=== PATIENT | male | born 1955 | race African-American/Black ===

== ENCOUNTER 2019-03-24 14:11 | Inpatient (IN) | payer SELFPAY ==
[2019-03-24] MEDS ORDERED: Acetaminophen 325 MG TAB PO PRN (15:15)
[2019-03-24] MEDS ORDERED: Senokot S 8.6-50 MG TAB PO PRN (15:15)
[2019-03-24] MEDS ORDERED: Bisacodyl 5 MG TAB PO PRN (15:15)
[2019-03-24 17:46] VITALS: BMI 19.5
[2019-03-24] MEDS: Sodium Chloride 0.9% 1,000 ML IV SCH (18:36)
--- NOTE | 2019-03-24 21:42 | HP ---
CHIEF COMPLAINT: Dizziness. HISTORY OF PRESENT ILLNESS: The patient is a 63-year-old male with no significant past medical history, who presents to the hospital with complaints of worsening dizziness for the past 1 week. The patient stated that he has been having also some blurry vision, and also generalized weakness. The patient's noticed a 20-pound weight loss in the last year. He states he is hungry and he wants to eat. The patient states that he has been feeling dizzy and lightheaded for the past week; however, this has worsened today. 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 The patient has never had a colonoscopy. He also has been complaining of black tarry stool for the past 2 months. He does have hemorrhoids; however, does not have active bleeding when he wipes after having a bowel movement. He also states that he takes about 4 to 5 tablets of ibuprofen for a week because of a toothache. The patient had a similar episode like this back in 2004 and he was admitted to [facility]. He was supposed to follow up with them; however, never did. PAST MEDICAL HISTORY: He denies. PAST SURGICAL HISTORY: He had a urethral tear, which was repaired. SOCIAL HISTORY: He smokes half a pack a day for about 20 years. Denies any alcohol use or drug use. He is a full code. Lives with the family. FAMILY HISTORY: Mother has diabetes. REVIEW OF SYSTEMS: All negative except for the ones mentioned above in the HPI. PHYSICAL EXAMINATION: VITAL SIGNS: Temperature of 98.4, respiratory rate 18, saturation 98% on room air, heart rate 77, blood pressure 120/60. GENERAL: He is awake, alert, and oriented x3. Does not appear in distress. HEENT: Conjunctivae are pale. Pupils are equal and reactive to light. CV: S1 and S2 present. No murmurs, rubs, or gallops. LUNGS: Clear to auscultation. No rhonchi or wheezes noted. ABDOMEN: Soft and nontender. Bowel sounds are present x2. EXTREMITIES: No edema. Pedal pulses are present x2. NEUROVASCULAR: No focal deficits noted. SKIN: No cuts, lesions, or bruises noted. LABORATORY RESULTS: As of the following; WBCs of 2.3, hemoglobin of 4.5, hematocrit of 12.4, platelets of 46, his MCV is 115. He is hypochromic. Chemistry; sodium of 141, potassium of 4.0, BUN is 16, creatinine 0.87, total bilirubin of 2.4, AST of 48. His lactic acid was 2.1. Urine appears dark. Has a small amount of bilirubin. Leukocyte esterase is trace. ASSESSMENT AND PLAN: The patient is a 63-year-old male, who comes to the hospital with generalized complaints of weakness. 1. Dizziness. This is most likely secondary to anemia, appears to be chronic in nature; however, now he is becoming more symptomatic. The patient's MCV is 114; however, I will go ahead and check iron studies. I will check a vitamin B12. I will check a folic. I will also check a ferritin level. I have discussed with the patient. He has agreed for me checking an HIV. I will get records from [facility]. I will also consult Hematology since his guaiac was negative. If there has not been a chest x-ray, I will go ahead and order a chest x-ray to rule out any other malignancies. He will also need possibly an upper and lower colonoscope to further evaluate his anemia. I will also consider doing an SPEP and a UPEP for further evaluation and I will go ahead and transfuse him a total of 2 units and check his H and H. 2. Pancytopenia. Again, this is most likely secondary to either bone marrow suppression versus production issue versus viral versus malignancy. Again, I will consult Hematology for further evaluation with this and in the meantime, I will check iron studies and may also have to consider consulting GI for possible colonoscopy given his 20-pound weight loss. 3. DVT prophylaxis. We will put patient on SCDs. Job ID: [id number]
[2019-03-25] MEDS: Sodium Chloride 0.9% 1,000 ML IV SCH (00:44)
[2019-03-25 03:52] LABS: Reticulocyte Count 1.9 % (0.5-1.5)
[2019-03-25 04:38] LABS: Vitamin B12 Less than 109 pg/mL (211-911)
[2019-03-25 04:44] LABS: ALT (SGPT) 17 U/L (8-55); AST (SGOT) 63 U/L (5-34); Albumin 3.5 g/dL (3.4-4.8); Alkaline Phosphatase 54 U/L (40-150); Anion Gap 14 mmol/L (10-20); BUN (Urea Nitrogen) 16 mg/dL (8.4-25.7); Bilirubin, Total 2.4 mg/dL (0.2-1.2); Calc. Creatinine Clearance 90 mL/min (70-130); Calcium 8.6 mg/dL (7.8-10.44); Carbon Dioxide 20 mmol/L (23-31); Chloride 112 mmol/L (98-107); Estimated GFR-MDRD Greater than 90; Globulin 2.6 g/dL (2.4-3.5); Glucose 85 mg/dL (80-115); Iron 181 ug/dL (65-175); Iron Binding Capacity, Total 179 mcg/dL (261-462); Potassium 5.1 mmol/L (3.5-5.1); Protein, Total 6.1 g/dL (5.8-8.1); Sodium 141 mmol/L (136-145)
[2019-03-25 05:05] LABS: Anisocytosis MARKED = >30 cells (100X) (0-5/hpf); Band 3 % (5-11); Elliptocytes SLIGHT = 2-5 cells (100X) (0-1/hpf); Eosinophils 2 % (0-10); Hemoglobin 7.6 g/dL (14.0-18.0); Lymphocytes 55 % (21-51); MDiff Complete? YES; Macrocytosis SLIGHT = 6-15 cells (100X) (0-5/hpf); Mean Corpuscular HGB CONC 33.7 g/dL (32.0-36.0); Mean Corpuscular Hemoglobin 37.1 pg (27.0-31.0); Mean Platelet Volume 9.7 fL (7.4-10.4); Monocytes 1 % (0-10); Neutrophil 38 % (42-75); Platelet Count 45 thou/uL (130-400); Platelet Morphology Comment Appears Decreased; Poikilocytosis SLIGHT = 6-15 cells (100X) (0-5/hpf); RBC Distribution Width 36.1 % (11.5-14.5); Red Blood Cell (RBC) Count 2.06 mill/uL (4.70-6.10); Schistocytes SLIGHT = 2-5 cells (100X) (0-1/hpf); White Blood Cell (WBC) Count 2.5 thou/uL (4.8-10.8)
[2019-03-25] MEDS ORDERED: Cyanocobalamin 1000 MCG/ML VIAL IM SCH (09:45)
[2019-03-25 10:32] LABS: Lactic Acid 2.1 mmol/L (0.5-2.2)
--- NOTE | 2019-03-25 12:37 | PDOC.HOSPP ---
- Subjective Subjective: pt up in bed no complains - Objective Vital Signs & Weight: Vital Signs (12 hours) Temp Pulse Resp BP BP Pulse Ox 03/25/19 11:38 98.2 F 68 16 103/58 L 96 03/25/19 07:26 98.4 F 64 16 119/68 93 L 03/25/19 05:01 97.9 F 76 20 128/79 76 L 03/25/19 00:40 97.6 F 69 18 125/77 99 Weight Weight 132 lb 1.6 oz I&O: 03/24/19 03/25/19 03/26/19 06:59 06:59 06:59 Intake Total 1030 Balance 1030 Result Diagrams: 03/25/19 03:28 03/25/19 03:26 ROS - Review of Systems All systems: All other ROS were reviewed and found negative. Respiratory: denies: cough, dry, shortness of breath, hemoptysis, SOB with excertion, pleuritic pain, sputum, wheezing, other Cardiovascular: denies: chest pain, palpitations, orthopnea, paroxysmal noc. dyspnea, edema, light headedness, other Gastrointestinal: denies: nausea, vomitting, abdominal pain, diarrhea, constipation, melena, hematochezia, other - Exam Heart: negative: RRR, no murmur, no gallops, no rubs, normal peripheral pulses, irregular, diminshed peripheral pulses, murmur present, II/IV, III/IV Respiratory: negative: CTAB, no wheezes, no rales, no ronchi, normal chest expansion, no tachypnea, normal percussion, rales, rhonchi, tachypneic, wheezes Gastrointestinal: negative: soft, non-tender, non-distended, normal bowel sounds , no palpable masses, no hepatomegaly, no splenomegaly, no bruit, tender to palpation, distended, diminished bowl sounds, voluntary guarding Hosp A/P (1) Pancytopenia Code(s): D61.818 - OTHER PANCYTOPENIA Status: Acute (2) Vitamin B 12 deficiency Code(s): E53.8 - DEFICIENCY OF OTHER SPECIFIED B GROUP VITAMINS Status: Acute - Plan pt's vit b12 is low possible could be causing his pancytopenia vs maligancy vs hemolysis. i will check haptoglobin, pt/inr and ptt. pt may need bone marrrow biospy. hematology consulted.
[2019-03-25 13:24] LABS: INR-International Normal Ratio 1.2; PTT 34.4 SEC (22.9-36.1); Prothrombin Time 15.1 SEC (12.0-14.7)
--- NOTE | 2019-03-25 20:27 | CON ---
DATE OF CONSULTATION: 03/25/2019 HISTORY OF PRESENT ILLNESS: Mr. Weaver is a 63-year-old male with a past history of the last few months of feeling weak and fatigued as well as losing 15 to 20 pounds. He states he has been eating, but he continues to lose weight. He has been dizzy and lightheaded and felt like he almost passed out and he presented to the [facility] Emergency Room because of this. On admission, he was found to be pancytopenic and was admitted because of that and the dizziness. Today, he states he feels much better with the IV fluids. Ultimately, he was also found to be low in B12 on initial labs. He denies any diarrhea. He denies any significant family history of pernicious anemia. He denies fevers, chills, or night sweats. PAST MEDICAL HISTORY: Negative. According to the patient, he does not see doctors very often. CURRENT MEDICATIONS: 1. Tylenol 650 mg p.o. q.4 hours p.r.n. 2. Dulcolax 10 mg p.o. daily p.r.n. 3. B12 1000 mcg IM, to be delivered today and just started. 4. B12 orally 1000 mcg p.o. daily. 5. Senokot two tablets p.o. b.i.d. ALLERGIES: NO KNOWN DRUG ALLERGIES. SOCIAL HISTORY: The patient is alone in the room. He smokes a half a pack per day and has for many years. He denies alcohol or drug use. He lives with family, but does not have any children. REVIEW OF SYSTEMS: Otherwise, 10-point review of systems is negative. PHYSICAL EXAMINATION: VITAL SIGNS: Temperature 98.2, pulse 68, respirations 16, O2 saturations 96% on room air, blood pressure 103/58. GENERAL: He is alert, awake, and oriented x3. He is in no acute distress. He appears tired. HEENT: Extraocular muscles are intact. Pupils are equal, round, and reactive to light. He has no oral cavity lesions. He does have poor dentition. NECK: Supple without lymphadenopathy. LUNGS: Clear to auscultation bilaterally. ABDOMEN: Hypoactive bowel sounds. Soft, nontender, nondistended. EXTREMITIES: No edema. He is mildly cachectic. LABORATORY DATA: White blood cell count 2.5, hemoglobin 7.6, platelets 45. Sodium 141, potassium 5.1, chloride 112, CO2 of 20, BUN 16, creatinine 0.7. Iron 181, TIBC 179 with 100% saturation, ferritin 657. Total bilirubin 2.4, AST 23. LDH 2958. B12 less than 109. Folic acid 12.5. ASSESSMENT: Mr. Weaver is a 63-year-old male with: 1. Pancytopenia, likely secondary to B12 deficiency. 2. Hyperbilirubinemia with an elevated LDH, possible low-grade hemolysis. This could also be due to B12 deficiency. 3. Weakness, fatigue, and weight loss. PLAN: 1. He has already been initiated on the B12, which I would recommend giving him 2 or 3 doses prior to discharge, he could follow up with us as an outpatient and he will need this weekly for 4 weeks followed by monthly for lifelong. I discussed this with him today. 2. His elevated LFTs could possibly be due to the B12 deficiency, but I would recommend abdominal ultrasound to rule out other etiologies. 3. Ultimately, he will need followup as an outpatient to make sure all of these issues are resolving and that his counts are returning to normal. I have provided him with my card, so that he can call us for followup. Job ID: [id number]
[2019-03-26 07:53] LABS: Anion Gap 7 mmol/L (10-20); BUN (Urea Nitrogen) 14 mg/dL (8.4-25.7); Calc. Creatinine Clearance 97 mL/min (70-130); Calcium 8.6 mg/dL (7.8-10.44); Carbon Dioxide 25 mmol/L (23-31); Chloride 111 mmol/L (98-107); Estimated GFR-MDRD Greater than 90; Glucose 87 mg/dL (80-115); Potassium 3.9 mmol/L (3.5-5.1); Sodium 139 mmol/L (136-145)
[2019-03-26 08:13] LABS: Hemoglobin 6.9 g/dL (14.0-18.0); Mean Corpuscular HGB CONC 34.5 g/dL (32.0-36.0); Mean Corpuscular Hemoglobin 37.2 pg (27.0-31.0); Mean Platelet Volume 11.8 fL (7.4-10.4); Platelet Count 38 thou/uL (130-400); RBC Distribution Width 35.6 % (11.5-14.5); Red Blood Cell (RBC) Count 1.86 mill/uL (4.70-6.10); White Blood Cell (WBC) Count 2.5 thou/uL (4.8-10.8)
[2019-03-26 08:19] LABS: Anisocytosis MARKED = >30 cells (100X) (0-5/hpf); Band 1 % (5-11); Bite Cells MODERATE= 6-15 cells (100X) (0-1/hpf); Eosinophils 2 % (0-10); Helmet Cells SLIGHT = 2-5 cells (100X) (0-1/hpf); Lymphocytes 45 % (21-51); MDiff Complete? YES; Monocytes 3 % (0-10); Neutrophil 49 % (42-75); Polychromasia SLIGHT = 2-3 cells (100X) (0-2/hpf); Reflex for Review?? YES; Schistocytes MODERATE= 6-15 cells (100X) (0-1/hpf); Tear Drops SLIGHT = 2-5 cells (100X) (0-1/hpf)
--- NOTE | 2019-03-26 08:53 | ULT ---
ULTRASOUND ABDOMEN COMPLETE HISTORY: Pancytopenia. TECHNIQUE: Briones-scale ultrasound evaluation of the liver, gallbladder, spleen, pancreas, common bile duct, kidne ys, abdominal aorta, and inferior vena cava (IVC). FINDINGS: There is no focal hepatic lesion. A focus of altered echotexture near the central aspect of the panc reas approximating the pancreatic head region is present, hyperchoic, measuring between 2-3 cm, incom pletely assessed. While this may relate to traversing bowel artifact, an underlying lesion cannot be excluded. No acute gallbladder pathology or biliary ductal dilatation. No focal splenic lesion. Th e left kidney is grossly unremarkable. Within the right kidney, a small parenchymal cyst is seen. N o ascites visualized. Imaged abdominal aorta is nonaneurysmal. IMPRESSION: Focal region of increased echotexture within the central abdomen approximating the region of the prox imal pancreas, and abutting portions of the liver, as described above. This is incompletely characte rized. Recommend dedicated CT abdomen and pelvis with contrast for further evaluation. POS: ELDER
[2019-03-26] MEDS ORDERED: Cyanocobalamin (Vitamin B-12) 1,000 MCG TAB PO SCH (09:00)
[2019-03-26 10:11] LABS: Platelet Count 48 thou/uL (130-400)
[2019-03-26 10:17] LABS: Fibrinogen 337 mg/dL (253-463)
[2019-03-26 10:18] LABS: INR-International Normal Ratio 1.1; PTT 33.4 SEC (22.9-36.1); Prothrombin Time 14.6 SEC (12.0-14.7)
[2019-03-26 10:19] LABS: D-Dimer Test 1.65 *mcg/mL (0.27-0.43)
[2019-03-26 10:29] LABS: ALT (SGPT) 12 U/L (8-55); AST (SGOT) 40 U/L (5-34); Alkaline Phosphatase 61 U/L (40-150); Bilirubin, Direct 0.9 mg/dL (0.1-0.3); Bilirubin, Total 2.4 mg/dL (0.2-1.2); Protein, Total 6.8 g/dL (5.8-8.1)
[2019-03-26 11:16] LABS: FSP-Qualitative ABNORMAL (Normal); FSP-Semiquantitative >=5 & <20 mcg/mL (Less than 5)
[2019-03-26] MEDS ORDERED: Cyanocobalamin 1000 MCG/ML VIAL SC SCH (12:00)
[2019-03-26] MEDS: Cyanocobalamin 1000 MCG/ML VIAL SC SCH (13:19)
--- NOTE | 2019-03-26 14:26 | PDOC.HOSPP ---
- Subjective Subjective: pt up in chair no complains - Objective Vital Signs & Weight: Vital Signs (12 hours) Temp Pulse Resp BP Pulse Ox 03/26/19 08:00 96 03/26/19 07:28 98.1 F 75 16 133/74 96 Weight Weight 132 lb 1.6 oz I&O: 03/25/19 03/26/19 03/27/19 06:59 06:59 06:59 Intake Total 1030 1260 Balance 1030 1260 Result Diagrams: 03/26/19 09:48 03/26/19 07:08 ROS - Review of Systems All systems: All other ROS were reviewed and found negative. ENT: denies: ear pain, ear discharge, nose pain, nose discharge, nose congestion , mouth pain, mouth swelling, throat pain, throat swelling, other Respiratory: denies: cough, dry, shortness of breath, hemoptysis, SOB with excertion, pleuritic pain, sputum, wheezing, other Cardiovascular: denies: chest pain, palpitations, orthopnea, paroxysmal noc. dyspnea, edema, light headedness, other - Medication Medications: Active Medications Generic Name Dose Route Start Last Admin Trade Name Freq PRN Reason Stop Dose Admin Cyanocobalamin 1,000 mcg 03/26/19 13:00 03/26/19 13:19 Vitamin B-12 SC 03/28/19 13:01 1,000 mcg 1300 ALEXANDR Administration - Exam Heart: negative: RRR, no murmur, no gallops, no rubs, normal peripheral pulses, irregular, diminshed peripheral pulses, murmur present, II/IV, III/IV Respiratory: negative: CTAB, no wheezes, no rales, no ronchi, normal chest expansion, no tachypnea, normal percussion, rales, rhonchi, tachypneic, wheezes Gastrointestinal: negative: soft, non-tender, non-distended, normal bowel sounds , no palpable masses, no hepatomegaly, no splenomegaly, no bruit, tender to palpation, distended, diminished bowl sounds, voluntary guarding Hosp A/P (1) Pancytopenia Code(s): D61.818 - OTHER PANCYTOPENIA Status: Acute (2) Vitamin B 12 deficiency Code(s): E53.8 - DEFICIENCY OF OTHER SPECIFIED B GROUP VITAMINS Status: Acute - Plan No dvt ppx due to low platelets. spoke with hematology about his moderate schistocytes. will monitor. i will start him on vit b12 sq daily for 3-4 days then weekly. He will need to follow up with hematology.
--- NOTE | 2019-03-26 14:51 | PDOC.MOPN ---
Interval History: Patient states feels better. Denies dizziness, shortness of breath. - Vital Signs Vital Signs: Vital Signs (12 hours) Temp Pulse Resp BP Pulse Ox 03/26/19 08:00 96 03/26/19 07:28 98.1 F 75 16 133/74 96 Weight Weight 132 lb 1.6 oz - Physical Exam General: Alert, Oriented x3, Cooperative HEENT: PERRLA Lungs: Clear to auscultation Cardiovascular: Regular rate Abdomen: Normal bowel sounds Extremities: No clubbing, No cyanosis, No edema, Normal pulses, No tenderness/ swelling Skin: No rashes, No breakdown Neurological: Normal gait, Normal speech, Strength at 5/5 X4 ext, Normal tone, Sensation intact, Cranial nerves 3-12 NL Psych/Mental Status: Mental status NL, Mood NL - Labs Result Diagrams: 03/26/19 09:48 03/26/19 07:08 Lab results: Laboratory Results - last 24 hr 03/26/19 09:48: Total Bilirubin 2.4 H, Direct Bilirubin 0.9 H, AST 40 H, ALT 12 , Alkaline Phosphatase 61, Serum Total Protein 6.8, Albumin 4.0 03/26/19 09:48: Plt Count 48 L, PT 14.6, INR 1.1, APTT 33.4, Fibrinogen 337, Fibrin Degrad Products ABNORMAL H, Fibrin Degrad Prod, Qt >=5 & <20 H, D-Dimer 1.65 H 03/26/19 09:48: Lactate Dehydrogenase 3069 H 03/26/19 07:08: WBC 2.5 L, RBC 1.86 L, Hgb 6.9 L, Hct 20.0 L, MCV 108.0 H, MCH 37.2 H, MCHC 34.5, RDW 35.6 H, Plt Count 38 L, MPV 11.8 H, Neutrophils % (Manual ) 49, Band Neuts % (Manual) 1 L, Lymphocytes % (Manual) 45, Monocytes % (Manual ) 3, Eosinophils % (Manual) 2, Neutrophils # Not Reportable, Lymphocytes # Not Reportable, Polychromasia SLIGHT = 2-3 cells, Anisocytosis MARKED = >30 cells H , Tear Drop Cells SLIGHT = 2-5 cells, Helmet Cells SLIGHT = 2-5 cells, Bite Cells MODERATE= 6-15 cells H, Schistocytes MODERATE= 6-15 cells H 03/26/19 07:08: Sodium 139, Potassium 3.9, Chloride 111 H, Carbon Dioxide 25, Anion Gap 7 L, BUN 14, Creatinine 0.65 L, Estimated GFR (MDRD) Greater than 90 , Glucose 87, Calcium 8.6 Status: lab reviewed by me A/P - Problem (1) Pancytopenia Current Visit: Yes Code(s): D61.818 - OTHER PANCYTOPENIA Status: Acute (2) Vitamin B 12 deficiency Current Visit: Yes Code(s): E53.8 - DEFICIENCY OF OTHER SPECIFIED B GROUP VITAMINS Status: Acute - Plan Plan: Continue B12 injections daily no transfusion since asymptomatic encouraged smoking cessation cbc in am home soon, follow-up in clinic
[2019-03-27 08:34] LABS: Hemoglobin 7.2 g/dL (14.0-18.0); Mean Corpuscular HGB CONC 33.4 g/dL (32.0-36.0); Mean Corpuscular Hemoglobin 36.1 pg (27.0-31.0); Platelet Count 40 thou/uL (130-400); RBC Distribution Width 35.1 % (11.5-14.5); Red Blood Cell (RBC) Count 1.98 mill/uL (4.70-6.10)
[2019-03-27 09:09] LABS: Bite Cells SLIGHT = 2-5 cells (100X) (0-1/hpf); Eosinophils 5 % (0-10); Lymphocytes 48 % (21-51); MDiff Complete? YES; Monocytes 4 % (0-10); Neutrophil 43 % (42-75); Nucleated RBC 4 % (0); Platelet Morphology Comment Appears Decreased; Polychromasia MODERATE = 3-4 cells (100X) (0-2/hpf); Schistocytes MODERATE= 6-15 cells (100X) (0-1/hpf); Tear Drops SLIGHT = 2-5 cells (100X) (0-1/hpf)
[2019-03-27] MEDS: Cyanocobalamin 1000 MCG/ML VIAL SC SCH (12:30)
--- NOTE | 2019-03-27 13:54 | CT ---
CT Abdomen Pelvis W Con: 03/27/2019 12:00 AM CLINICAL INFORMATION: Hyperechoic regions seen adjacent to the pancreas on prior examination COMPARISON: Abdominal ultrasound 03/26/2019 TECHNIQUE: Multiple contiguous axial images were obtained and a CT of the abdomen and pelvis with IV contrast. C oronal reformats were performed. FINDINGS: Lower Chest: Tiny bilateral pleural effusions with adjacent atelectasis Abdomen: Liver: within normal limits. Bile Ducts: Normal caliber. Gallbladder: No calcified gallstones. Normal caliber wall. Pancreas: within normal limits. Spleen: within normal limits. Adrenals: within normal limits. Kidneys: Subcentimeter hypodensities in the kidneys are too small to definitely characterize but like ly represent cysts. Pelvis: Reproductive Organs: No pelvic masses. Ureters: within normal limits. Bladder: within normal limits. Peritoneum: No ascites or free air, no fluid collection. Bowel: Normal caliber. Mesentery and Retroperitoneum: No enlarged mesenteric or retroperitoneal lymph nodes. Vessels: Atherosclerotic calcifications. Abdominal Wall: within normal limits. Bones: Degenerative changes in the spine. IMPRESSION: 1. Bilateral renal cysts 2. The abnormality seen on prior ultrasound may have been artifactual.
[2019-03-27] MEDS ORDERED: ISOVUE-370 76%-LOCM 1 ML ONE (14:47)
--- NOTE | 2019-03-27 15:12 | PDOC.MOPN ---
Interval History: Feels well and wants to go home. - Vital Signs Vital Signs: Vital Signs (12 hours) Temp Pulse Resp BP Pulse Ox 03/27/19 07:55 97.8 F 70 18 149/78 H 98 03/27/19 07:16 98 Weight Weight 132 lb 1.6 oz - Physical Exam General: Alert, Oriented x3, Cooperative HEENT: Atraumatic, PERRLA, EOMI, Mucous membr. moist/pink Lungs: Clear to auscultation, Normal air movement Cardiovascular: Regular rate, Normal S1, Normal S2, No murmurs, Gallops, Rubs Abdomen: Normal bowel sounds, Soft, No tenderness, No hepatospenomegaly, No masses Extremities: No clubbing, No cyanosis, No edema, Normal pulses, No tenderness/ swelling Skin: No rashes, No breakdown, No significant lesion Neurological: Normal gait, Normal speech, Strength at 5/5 X4 ext, Normal tone, Sensation intact, Cranial nerves 3-12 NL, Reflexes 2+ Psych/Mental Status: Mental status NL, Mood NL - Labs Result Diagrams: 03/27/19 08:16 03/26/19 07:08 Lab results: Laboratory Results - last 24 hr 03/27/19 08:16: WBC 3.0 L, RBC 1.98 L, Hgb 7.2 L, Hct 21.4 L, MCV 108.0 H, MCH 36.1 H, MCHC 33.4, RDW 35.1 H, Plt Count 40 L, MPV 9.0, Neutrophils % (Manual) 43, Lymphocytes % (Manual) 48, Monocytes % (Manual) 4, Eosinophils % (Manual) 5 , Neutrophils # Not Reportable, Lymphocytes # Not Reportable, Nucleated RBCs # ( Man) 4 H, Plt Morphology Comment Appears Decreased L, Polychromasia MODERATE = 3 -4 cells H, Tear Drop Cells SLIGHT = 2-5 cells, Bite Cells SLIGHT = 2-5 cells, Schistocytes MODERATE= 6-15 cells H 03/25/19 10:04: Haptoglobin Less than 10 L Status: lab reviewed by me A/P - Problem (1) Pancytopenia Current Visit: Yes Code(s): D61.818 - OTHER PANCYTOPENIA Status: Acute (2) Vitamin B 12 deficiency Current Visit: Yes Code(s): E53.8 - DEFICIENCY OF OTHER SPECIFIED B GROUP VITAMINS Status: Acute - Plan Plan: OK to dc home Follow-up with Dr. Lyons on at 1:00 for CBC, B12 injection
[2019-03-27 17:28] VITALS: BP 135/77; TEMP 98.2
== END 2019-03-27 16:49 | disposition home or self-care (01) | DRG 809 ==
LOC: ERS 14:11 → T4-A 14:52
PROVIDERS: ADMIT Internal Medicine; ATTEND Internal Medicine
PROC: 30233N1 Transfusion of Nonautologous Red Blood Cells into Peripheral Vein, Percutaneous Approach (ICD-10-PCS; principal; 2019-03-24)
DX: D61.818 Other pancytopenia (principal); R64 Cachexia; Z68.1 Body mass index [BMI] 19.9 or less, adult; F17.210 Nicotine dependence, cigarettes, uncomplicated; E53.8 Deficiency of other specified B group vitamins
CPT/HCPCS: 36415; 74177; 76700; 80048; 80053; 80076; 82607; 82728; 82746; 83010; 83540; 83550; 83605; 83615; 85025; 85046; 85049; 85060; 85300; 85362; 85379; 85384; 85610; 85730; 86850; 86900; 86901; 99291; J3420; P9016; Q9966

== ENCOUNTER 2020-05-12 06:08 | Outpatient (CLI) | payer MEDICARE, OTHER ==
--- NOTE | 2020-05-12 10:51 | RAD ---
EXAM: Chest PA and lateral: HISTORY: Preoperative exam. COMPARISON: 03/24/2019 FINDINGS: Heart: Normal cardiac silhouette Aorta: Minimal atelectasis cirrhosis and elongation Pulmonary vessels: Normal Costophrenic angles: Costophrenic angles are clear. Lungs: No consolidation or masses. Hyperinflation. Pneumothorax: No pneumothorax Osseous structures: No osseous abnormalities IMPRESSION: No acute cardiopulmonary process.
[2020-05-12 14:23] LABS: #Basophils 0.1 thou/uL (0.0-0.2); #Eosinphils 0.2 thou/uL (0.0-0.7); #Lymphocytes 1.8 thou/uL (1.20-3.40); #Monocytes 0.4 thou/uL (0.11-0.59); #Neutrophils 3.8 thou/uL (1.40-6.50); %Basophils 1.1 % (0.0-1.0); %Eosinophils 3.5 % (0.0-10.0); %Lymphocytes 28.5 % (21.0-51.0); %Monocytes 5.7 % (0.0-10.0); %Neutrophils 61.2 % (42.0-75.0); Hemoglobin 14.4 g/dL (14.0-18.0); Mean Corpuscular HGB CONC 32.6 g/dL (32.0-36.0); Mean Corpuscular Hemoglobin 30.7 pg (27.0-31.0); Mean Corpuscular Volume 94.3 fL (78.0-98.0); Mean Platelet Volume 7.1 fL (7.4-10.4); Platelet Count 351 thou/uL (130-400); RBC Distribution Width 12.5 % (11.5-14.5); Red Blood Cell (RBC) Count 4.69 mill/uL (4.70-6.10); White Blood Cell (WBC) Count 6.3 thou/uL (4.8-10.8)
[2020-05-12 14:59] LABS: Anion Gap 15 mmol/L (10-20); BUN (Urea Nitrogen) 13 mg/dL (8.4-25.7); Calc. Creatinine Clearance 0 mL/min (70-130); Calcium 9.7 mg/dL (7.8-10.44); Carbon Dioxide 22 mmol/L (23-31); Chloride 107 mmol/L (98-107); Estimated GFR-MDRD Greater than 90; Glucose 102 mg/dL (80-115); Potassium 4.5 mmol/L (3.5-5.1); Sodium 139 mmol/L (136-145)
[2020-05-13 13:21] LABS: SARS-CoV-2 MS2 Positive; SARS-CoV-2 N Gene Negative; SARS-CoV-2 S Gene Negative; SARS-CoV-2 by NAA Not Detected (NotDetected); SARS-CoV-2 orf1ab Negative
== END 2020-05-12 06:09 | disposition home or self-care (01) ==
LOC: LABBT 06:08 → SCSRAD 06:09
PROVIDERS: ATTEND Specialist
DX: Z01.818 Encounter for other preprocedural examination (principal); Z20.828 Contact with and (suspected) exposure to other viral communicable diseases; K40.90 Unilateral inguinal hernia, without obstruction or gangrene, not specified as recurrent
CPT/HCPCS: 71046; 80048; 85025; 87635; 93005; 93010; U0003

== ENCOUNTER 2020-05-15 05:50 | Day surgery (SDC) | payer MEDICARE ==
[2020-05-14 09:55] VITALS: BMI 22.6
[2020-05-15] MEDS ORDERED: Ketorolac Tromethamine 30 MG/ML VIAL ONE (06:11)
[2020-05-15] MEDS ORDERED: Acetaminophen 500 MG TAB ONE (06:11)
[2020-05-15] MEDS ORDERED: Fentanyl 250 MCG/5 ML VIAL ONE (06:57)
[2020-05-15] MEDS ORDERED: Midazolam HCl 2 mg/2 ml Vial ONE (07:00)
[2020-05-15] MEDS ORDERED: Bupivacaine 0.25% HCL 30 ML VIAL ONE ×2 (07:07→07:18)
[2020-05-15] MEDS ORDERED: Lidocaine 1% w/Epinephrine 1:100K 20 ML VIAL ONE ×2 (07:07→07:18)
[2020-05-15] MEDS ORDERED: Levofloxacin 500 mg/D5W 100 ml Premix Bag ONE (08:10)
[2020-05-15] MEDS ORDERED: Dexamethasone 20 MG/5 ML VIAL ONE (09:10)
[2020-05-15] MEDS ORDERED: PROPOFOL 200 MG/20 ML VIAL ONE (09:10)
[2020-05-15] MEDS ORDERED: EPHEDRINE 25 MG/5 ML SYRINGE ONE (09:10)
[2020-05-15] MEDS ORDERED: Ondansetron PF 4 MG/2 ML Vial ONE (09:10)
[2020-05-15] MEDS ORDERED: Glycopyrrolate 0.2 MG/ML 5 ML SYRINGE ONE (09:10)
[2020-05-15] MEDS ORDERED: Rocuronium Bromide 10 MG/ML (10ML VIAL) ONE (09:10)
[2020-05-15] MEDS ORDERED: diphenhydrAMINE 50 MG/ML VIAL ONE (09:10)
[2020-05-15] MEDS ORDERED: PHENYLEPHRINE-NS 100 MCG/ML 10 ML SYRINGE ONE (09:10)
[2020-05-15] MEDS ORDERED: Fentanyl 100 MCG/2 ML VIAL ONE (10:19)
--- NOTE | 2020-05-15 23:57 | OP ---
DATE OF PROCEDURE: 05/15/2020 Intraoperative consult obtained from Dr. Shin Graff. PREOPERATIVE DIAGNOSIS: Inguinal hernia. POSTOPERATIVE DIAGNOSIS: Inguinal hernia with urethral stricture in the pendulous urethra. 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 They had discussed robotic inguinal hernia repair, for which Dr. Graff had planned bilateral inguinal hernia repairs for the patient. At the start of the case, attempts at placing a Haro catheter were met with resistance approximately with midway down the pendulous urethra. The patient had not really endorsed any significant history of urethral trauma or previous problems, but did mention a penile injury at some point in the past at his work site. Dr. Graff requested intraoperative consult by me for placement of a Haro catheter. DESCRIPTION OF PROCEDURE: Upon my arrival to the operating room, the patient was already intubated and asleep. The patient's armband and consent were verified. A flexible cystoscope was used to cannulate the meatus. Cystourethroscopy was performed up to the level of the mid urethra, at which point, a pendulous urethral stricture was noted approximately 8-Faroese in diameter. It was unable to be navigated past using the cystoscope. An Amplatz Super Stiff wire was placed through the lumen of the stricture and into the bladder. The cystoscope was then removed using Tyree dilators starting at 12-Faroese. Dilators were passed sequentially over the Super Stiff wire from 12-Faroese up to 20-Faroese, at which point, a 16-Faroese [place] tip catheter was able to be passed with ease into the bladder. The Super Stiff wire was then removed. 10 mL of sterile water was placed into the balloon with return of mildly blood-tinged urine. The catheter was left to gravity drainage. Dr. Graff then performed his portion of the robotic inguinal hernia repairs, which will be dictated separately in his operative report. For my portion of the procedure, complications none. ESTIMATED BLOOD LOSS: Minimal. RETAINED TUBES AND DRAINS: 16-Faroese [place] tip catheter. SPECIMENS: None. DISPOSITION: The patient to keep his catheter in for approximately 7 days, at which point, he can return to my office for a voiding trial. He is a high risk for having a recurrence of a stricture given that he had serial dilations only. I will monitor him postoperatively for stricture recurrence and discuss definitive treatment in the future if his stricture recurs. Job ID: [id number]
--- NOTE | 2020-05-16 14:10 | OP ---
DATE OF PROCEDURE: 05/15/2020 PREOPERATIVE DIAGNOSIS: Left inguinal hernia. POSTOPERATIVE DIAGNOSES: Left inguinal hernia with urethral stricture. PROCEDURE PERFORMED: Robotic-assisted repair of large indirect left inguinal hernia, urologic procedure to be dictated separately by Dr. Pitts. INDICATIONS: The patient is a 64-year-old thin black male. He presents with a large left inguinal hernia. He was taken to the operating room at this time for repair. DESCRIPTION OF PROCEDURE: Informed consent was obtained. The patient was taken to the operating room, where general anesthesia obtained with the patient in supine position. Haro catheter was attempted, but on numerous attempts, this was found to be impossible to perform. Dr. Pitts was consulted who presented immediately to the operating room. He was able to identify urethral stricture, which he was able to dilate and place a catheter internally. Following successful Haro catheter placement, the abdomen was prepped with ChloraPrep and draped in sterile fashion. Local anesthetic was infiltrated using a mixture of 1% lidocaine with epinephrine and 0.25% Marcaine. An 11 mm supraumbilical incision was created through which a Veress needle was passed in the peritoneal cavity and pneumoperitoneum was established using carbon dioxide up to pressure of 15 mmHg. Robotic camera was passed through the 11 mm balloon-tipped port and two additional 8 mm robotic ports were placed at the supraumbilical level on either side of midline. The robot was docked to the 3 ports and the camera. Operation was continued from the robotic console. The left inguinal hernia was noted to be large and indirect. There was no evidence of right inguinal hernia. A transverse peritoneal incision was created several centimeters superior to the hernia defect. Preperitoneal dissection was carried inferiorly. I was able to dissect the iliopubic tract extending laterally as well as the pubic tubercle on the medial aspect. The hernia sac was carefully dissected away from the cord structures and the peritoneum was widely mobilized posteriorly. Hemostasis maintained with electrocautery. A medium size 3D max mesh patch was obtained and placed within the preperitoneal space. It was secured to the pubic tubercle medially into the anterior abdominal wall lateral to the epigastric vessels. This gave excellent coverage over the hernia defect. The peritoneum was then closed with a running suture of 3-0 Stratafix. There was a rent in the peritoneum on the posterior aspect that was easily repaired using the same suture. The fascial defect at the supraumbilical port site was closed with 0 Vicryl suture using a GraNee needle. Operative site was inspected one final time and noted to be hemostatic. Ports were removed under direct vision. Pneumoperitoneum was carefully evacuated. 0.25% Marcaine with epinephrine was infiltrated into each port site. Skin edges were approximated with 4-0 Monocryl subcuticular suture. Dermabond was placed externally. There were no complications. The patient tolerated the procedure well and was taken to recovery room in stable condition. His Haro catheter was left in place and this will be addressed postoperatively per Dr. Pitts in 7 to 10 days. Job ID: [id number]
== END 2020-05-15 12:45 | disposition home or self-care (01) ==
LOC: SDC 05:50
PROVIDERS: ATTEND Specialist
PROC: 0YU64JZ Supplement Left Inguinal Region with Synthetic Substitute, Percutaneous Endoscopic Approach (ICD-10-PCS; principal; 2020-05-15)
PROC: 0T7D7ZZ Dilation of Urethra, Via Natural or Artificial Opening (ICD-10-PCS; 2020-05-15)
DX: K40.90 Unilateral inguinal hernia, without obstruction or gangrene, not specified as recurrent (principal); N35.914 Unspecified anterior urethral stricture, male; F17.210 Nicotine dependence, cigarettes, uncomplicated; E53.8 Deficiency of other specified B group vitamins; Z79.899 Other long term (current) drug therapy
CPT/HCPCS: 49650; 53605; C1781; J0690; J1100; J1200; J1885; J1956; J2250; J2405; J2704; J3010; S0020